=== PATIENT | male | born 1955 | race Caucasian/White ===

== ENCOUNTER → 2017-08-30 09:51 | Outpatient (CLI) | payer BC, SELFPAY ==
[2017-08-30 12:37] LABS: PSA,Total- Diagnostic 0.64 ng/mL (0.0-4.0)
== END ==
PROVIDERS: Family Provider Family Medicine; PCP Family Medicine; Visit Provider Family Medicine
DX: R19.7 Diarrhea, unspecified (principal); Z12.5 Encounter for screening for malignant neoplasm of prostate
CPT/HCPCS: 36415; 82274; 83630; 84153; 87177; 87209; 87493; 87506

== ENCOUNTER → 2018-09-01 14:52 | Outpatient (CLI) | payer BC, SELFPAY ==
[2018-09-01 17:50] LABS: ALB/GLOB Ratio 1.1 RATIO (0.9-2.4); AST(SGOT) 18 U/L (15-37); Alanine Aminotransfer ALT/SGPT 25 U/L (16-61); Albumin, Serum 3.8 g/dL (3.2-5.0); Alkaline Phosphatase 84 U/L (45-117); Anion Gap 11 (5-15); BUN 17 mg/dL (7-18); BUN/Creat Ratio 13.8 RATIO (10-20); Calcium,Total 8.7 mg/dL (8.5-10.1); Chloride 107 mmol/L (98-107); Cholesterol 169 mg/dL (200); Creatinine, Serum 1.23 mg/dL (0.70-1.30); EST Glomerular Filtration Rate 63 mL/min (>60); Est Glom Filt Rate - Afr Amer 76 mL/min (>60); Globulin 3.6 g/dL (2.2-4.2); Glucose 81 mg/dL (74-106); High Density Lipoprotein 53 mg/dL; Magnesium 2.4 mg/dL (1.6-2.6); PSA,Total - Annual Screen 0.58 ng/mL (0.00-4.00); Potassium 3.6 mmol/L (3.5-5.1); Protein, Total 7.4 g/dL (6.4-8.2); Sodium Level 142 mmol/L (136-145); T4 Free Direct 0.93 ng/dL (0.76-1.46); Thyroid Stim Hormone (TSH) 1.71 uIU/mL (0.358-3.74); Triglycerides 155 mg/dL; Very Low Density Lipoprotein 31 mg/dL (5-40)
[2018-09-01 18:02] LABS: Absolute Lymphocyte Count 2.61 X10^3/ul (0.83-4.51); Absolute Neutrophil Count 2.9 X10^3/uL (2.0-7.7); Basophil# 0.07 X10^3/uL; Eosinophil# 0.54 X10^3/uL; Eosinophils% 7.9 % (0-5); Hematocrit 46.4 % (40-54); Hemoglobin 15.8 g/dl (13.0-16.5); Lymphocyte # 2.61 X10^3/ul (4.0); Lymphocyte % 38.2 % (19-41); Mean Corp Hgb Conc 34.1 g/gl (32-36); Mean Corpuscular Hgb 30.2 pg (27.0-32.0); Mean Corpuscular Volume 88.7 fL (80-94); Mean Platelet Vol. 9.6 fl (6.2-12.0); Monocyte# 0.69 X10^3/uL; Monocyte% 10.1 % (0-10); Neutrophil % 42.5 % (47-70); Platelet Count 202 K/mm3 (150-450); RBC Distribution Width CV 12.9 % (11.6-14.6); RBC Distribution Width SD 42.1 fl (35.1-43.9); Red Blood Count 5.23 M/mm3 (4.6-6.2); White Blood Count 6.8 K/mm3 (4.4-11.0)
[2018-09-01 18:05] LABS: POSITIVE COUNT NO; POSITIVE DIFFERENTIAL NO; POSITIVE MORPHOLOGY NO
== END ==
PROVIDERS: Family Provider Family Medicine; PCP Family Medicine; Visit Provider Family Medicine
DX: Z00.00 Encounter for general adult medical examination without abnormal findings (principal); R00.2 Palpitations; Z12.5 Encounter for screening for malignant neoplasm of prostate
CPT/HCPCS: 36415; 80053; 80061; 83735; 84153; 84439; 84443; 85025; G0103

== ENCOUNTER 2020-03-14 07:59 | Emergency (ER) | payer MEDICARE, OTHER, SELFPAY ==
[2020-03-14 08:00] VITALS: BP 149/85; PULSE 71; RESP 18; TEMP 36.4; O2SAT 97; BMI 27.8
--- NOTE | 2020-03-14 09:17 | RAD_ITS ---
STUDY: X-RAY CHEST REASON FOR EXAM: Male, 65 years old. COUGH, LOSS OF TASTE TECHNIQUE: Single AP portable view of the chest. COMPARISON: None. FINDINGS: The lungs are clear and expanded. There is no demonstrated pleural abnormality. Normal size heart. Normal mediastinum and karlo. Normal visualized pulmonary arteries. There is atherosclerotic tortuosity of the aortic arch and descending thoracic aorta. There are degenerative changes of the visualized thoracic spine. Minimal dextroscoliosis. Normal visualized ribs, clavicles, and shoulders. There is no demonstrated abnormality of the visualized soft tissue structures of the upper abdomen. RAD/Chest 1 View (Portable) IMPRESSION: No acute abnormality is seen. Electronically Signed: Virgilio Ortiz, at 9:36 EDT , Service support ,
--- NOTE | 2020-03-14 09:20 | ED.DCSUM_ITS ---
History of Present Illness Chief Complaint: Other, Pain/Inj Informant: Patient Onset: Today - Loss of smell and for the past 6 days no rhinorrhea which is abnormal Context: Sudden Onset Timing: Continuous Quality: Loss of smell and loss of hayfever symptoms Location: Upper respiratory Current Severity: Mild Maximum Severity: Mild Worsened by: Nothing Relieved by: Nothing Associated Symptoms: No associated symptoms Narrative: Patient is a 65-year-old male who presents because of loss of smell that started this morning and loss of hayfever symptoms that started 6 days ago. He denies fever, chills or night sweats. He denies ocular, visual auditory symptoms. He denies change in voice, sore throat or difficulty swallowing. He denies cough, dyspnea or dyspnea on exertion. He denies chest discomfort. He denies any symptoms involving his extremities. He denies GI symptoms. He is unaware of any ill contacts. Prior similar symptoms: No Recent Illness/Hospitalization: No Past Medical History - Allergies and Home Meds Allergies/Adverse Reactions: Allergies SEASONAL Allergy (Uncoded 03/14/20 08:03) NEEDS FOLLOW-UP SNEEZING, WATERY EYES, ETC. Primary Care Physician: Sorin Anderson DO [Primary Care Provider] - Prior records reviewed: No - There are none Surgical History: noncontributory Lives: Alone Smoking Status: Never smoker Alcohol: None Drugs: None Review of Systems General: Denies: Chills, Fever, Malaise, Subjective Eyes: Denies: Visual changes - bilaterally, Blurred Vision - bilaterally ENT: Denies: Bilateral ear pain, Rhinorrhea, Sore throat Cardiovascular: Denies: Chest pain, Palpitations Respiratory: Denies: Dyspnea, Cough, Dyspnea on exertion Gastrointestinal: Denies: Nausea, Vomiting, Diarrhea Musculoskeletal: Denies: Myalgias, Arthralgias, Neck pain, Back pain, Swelling, Extremity Pain, -, - Neurological: Denies: Headache, Weakness Allergy: Denies: Uticaria, Swelling of the mouth, Swelling of the tongue Physical Exam Vital Signs/Narrative: Vital Signs Temp Pulse Resp BP Pulse Ox 03/14/20 08:00 97.6 F L 71 18 149/85 H 97 Inital Vital Signs reviewed: Yes General: No Acute Distress. Negative for: Well nourished, Well developed Head: Normocephalic, Atraumatic Eyes: Perrl, EOMI. Negative for: Pale conjunctiva, Scleral icterus ENT: Moist mucous membranes, No rhinorrhea Neck: Supple, Nontender, No lymphadenopathy, No JVD Cardiovascular: Regular rate, Regular rhythm, No murmurs Respiratory: No distress, Chest nontender, Rales - Rales right lower lobe posteriorly. Negative for: CTA bilaterally Abdomen: Soft, Nontender, Nondistended, Normal bowel sounds Rectal: Deferred Extremities: Nontender, No edema Skin: Normal color, No rash, No Trauma. Negative for: Cyanosis, Diaphoresis, Jaundice Neurological: Alert, Oriented x3, Cranial nerves II-XII grossly intact, Normal Strength, Normal Sensation Psychological: Normal affect, Normal Mood Diagnostic/Tx/Re-eval Chest X-Ray - ED: 1 View, Read by ED Physician Single view chest x-ray was interpreted by me as negative for any acute pathology. Cardiac size and silhouette normal. Mediastinum/karlo normal. Osseous structures are normal. Lung parenchyma without evidence of infiltrate, congestive heart failure and there is no pleural effusion. - Medical Decision Making With respiratory symptoms and loss of smell COVID test was obtained and chest x- ray because of abnormal auscultatory findings right lower lobe posteriorly to evaluate for pneumonia versus atelectasis. Patient's chest x-ray is normal. Since his vitals are normal he will be discharged home with appropriate home-going instructions. He was informed it may take several days to potentially a week to obtain COVID test results. He was instructed to self quarantine. He was instructed that he should call his friends he was scheduled to play golf with the head states he should not. ED Disposition - Plan for ED Patient: Disposition: Home or Assisted Living Diagnosis: Suspected 2019 novel coronavirus infection Instructions: ED URI Viral Referrals: Sorin Anderson DO [Primary Care Provider] - As Needed Additional Instructions: You should self quarantine until you get your COVID 19 viral test results.
[2020-03-14 10:00] VITALS: BP 137/88; PULSE 57; RESP 16; O2SAT 99
== END 2020-03-14 10:39 | disposition home or self-care (01) ==
LOC: ED 10:34
PROVIDERS: Emergency Provider Emergency Medicine; PCP Family Medicine
DX: U07.1 COVID-19 (principal)
CPT/HCPCS: 71045; 87040; 87635; 94799; 99284; U0003

== ENCOUNTER → 2020-09-21 10:30 | Outpatient (CLI) | payer MEDICARE, OTHER, SELFPAY ==
[2020-09-21 12:56] LABS: Absolute Lymphocyte Count 1.65 X10^3/uL (0.83-4.51); Absolute Neutrophil Count 3.1 X10^3/uL (2.0-7.7); Basophil# 0.08 X10^3/uL; Basophil% 1.3 % (0-1); Eosinophil# 0.63 X10^3/uL; Eosinophils% 10.6 % (0-5); Hematocrit 44.4 % (40-54); Hemoglobin 14.7 g/dL (13.0-16.5); Lymphocyte # 1.65 X10^3/ul (4.0); Lymphocyte % 27.7 % (19-41); Mean Corp Hgb Conc 33.1 g/dL (32-36); Mean Corpuscular Hgb 30.2 pg (27.0-32.0); Mean Corpuscular Volume 91.2 fL (80-94); Mean Platelet Vol. 9.6 fl (6.2-12.0); Monocyte# 0.52 X10^3/uL; Monocyte% 8.7 % (0-10); NRBC Flagged by Analyzer 0 % (0-5); Neutrophil # 3.06 X10^3/uL (2.7-7.7); Neutrophil % 51.5 % (47-70); Platelet Count 194 K/mm3 (150-450); RBC Distribution Width CV 12.2 % (11.6-14.6); RBC Distribution Width SD 40.9 fl (35.1-43.9); Red Blood Count 4.87 M/mm3 (4.6-6.2)
[2020-09-21 13:18] LABS: ALB/GLOB Ratio 1.2 RATIO (0.9-2.4); AST(SGOT) 20 U/L (15-37); Alanine Aminotransfer ALT/SGPT 28 U/L (16-61); Albumin, Serum 3.9 g/dL (3.2-5.0); Alkaline Phosphatase 80 U/L (45-117); Anion Gap 5 (5-15); BUN 19 mg/dL (7-18); BUN/Creat Ratio 15.8 RATIO (10-20); Chloride 109 mmol/L (98-107); EST Glomerular Filtration Rate 64 mL/min (>60); Est Glom Filt Rate - Afr Amer 78 mL/min (>60); Globulin 3.2 g/dL (2.2-4.2); Glucose 80 mg/dL (74-106); PSA,Total - Annual Screen 0.47 ng/mL (0.00-4.00); Potassium 4.1 mmol/L (3.5-5.1); Protein, Total 7.1 g/dL (6.4-8.2); Sodium Level 140 mmol/L (136-145)
== END ==
PROVIDERS: PCP Family Medicine; Visit Provider Family Medicine
DX: R10.9 Unspecified abdominal pain (principal); Z12.5 Encounter for screening for malignant neoplasm of prostate
CPT/HCPCS: 36415; 80053; 84153; 85025; G0103

== ENCOUNTER → 2020-09-26 06:55 | Outpatient (CLI) | payer MEDICARE, OTHER, SELFPAY ==
--- NOTE | 2020-09-26 06:58 | CT_ITS ---
STUDY: CT ABDOMEN AND PELVIS WITH CONTRAST REASON FOR EXAM: Male, 65 years old. RLQ PAIN SINCE 01/2020, NOT CURRENTLY HAVING PAIN, BILATERAL HERNIA REPAIR RADIATION DOSAGE (If Supplied By Facility): CTDIvol = ( 11.48 ) mGy, DLP = ( 1058.91 ) mGycm TECHNIQUE: Transaxial images were obtained from the dome of the diaphragm to the symphysis pubis without oral contrast. was administered. Sagittal and coronal images were reconstructed. Individualized dose optimization techniques were used for this CT. COMPARISON: None. FINDINGS: The visualized lung bases are unremarkable. The visualized portions of the heart are within normal limits. Normal liver. Normal gallbladder and extrahepatic biliary system. There is mild splenomegaly. Normal pancreas. Normal bilateral adrenal glands. Normal right kidney. Normal left kidney. There is a small hiatal hernia. Normal small intestine. There are multiple colonic diverticula consistent with diverticulosis. The appendix is visualized and appears normal. There is diffuse atherosclerotic calcification of the abdominal aorta and its major visceral branches, without a demonstrated aneurysm. Normal inferior vena cava. Normal retroperitoneum. Normal urinary bladder. There is enlargement of the prostate gland. It measures 5.5 cm x 3.6 cm. There is a right-sided inguinal hernia containing adipose tissue. There are diffuse degenerative changes of the visualized lumbar spine. Minimal anterior listhesis of L5 on S1 with spondylolysis of the pars interarticularis of the L5 vertebrae. CT/Abdomen/Pelvis WITH Contrast IMPRESSION: Sigmoid diverticulosis. Borderline splenomegaly. Small hiatal hernia. Electronically Signed: Virgilio Ortiz MD at 8:41 EST , Service support ,
== END ==
PROVIDERS: PCP Family Medicine; Referring Provider Family Medicine; Visit Provider Family Medicine
DX: R10.31 Right lower quadrant pain (principal)
CPT/HCPCS: 74177; Q9967

== ENCOUNTER 2020-10-11 08:55 | Outpatient (RCR) | payer MEDICARE, OTHER, SELFPAY ==
[2020-10-11] MEDS: COVID-19 VACC, MRNA(PFIZER)/PF 30 MCG/0.3 ML SYRINGE IM (10:41)
[2020-11-01] MEDS: COVID-19 VACC, MRNA(PFIZER)/PF 30 MCG/0.3 ML SYRINGE IM (10:29)
== END 2021-01-10 23:59 ==
LOC: IMMUN 08:55
PROVIDERS: PCP Family Medicine; Visit Provider Family Medicine
DX: Z23 Encounter for immunization (principal)
CPT/HCPCS: 0001A; 0002A; 91300

== ENCOUNTER → 2020-11-25 15:18 | Outpatient (CLI) | payer MEDICARE, OTHER, SELFPAY ==
[2020-11-25 18:13] LABS: CRP < 2.90 mg/L (0.0-3.0)
[2020-11-28 16:08] LABS: Endomysial Antibody IgA Negative (Negative)
[2020-11-28 18:44] LABS: Immunoglobulin A 209 mg/dL (61-437); t-Transglutaminase IgA <2 U/mL (0-3)
== END ==
PROVIDERS: PCP Family Medicine; Referring Provider Internal Medicine Gastroenterology; Visit Provider Internal Medicine Gastroenterology
DX: R10.9 Unspecified abdominal pain (principal)
CPT/HCPCS: 36415; 82784; 83516; 86140; 86255

== ENCOUNTER → 2021-04-12 14:35 | Outpatient (CLI) | payer MEDICARE, OTHER, SELFPAY ==
--- NOTE | 2021-04-12 14:38 | CT_ITS ---
STUDY: CT ABDOMEN AND PELVIS WITH CONTRAST REASON FOR EXAM: Male, 66 years old. POSS RECURRENT INGUINAL HERNIA RADIATION DOSAGE (If Supplied By Facility): CTDIvol = ( 15.71 ) mGy, DLP = ( 816.75 ) mGycm TECHNIQUE: Transaxial images were obtained from the dome of the diaphragm to the symphysis pubis without oral contrast. IV 100mL Isovue-370 was administered. Sagittal and coronal images were reconstructed. Individualized dose optimization techniques were used for this CT. COMPARISON: 09/26/2020 FINDINGS: The visualized lung bases are unremarkable. The visualized portions of the heart are within normal limits. Normal liver. Normal gallbladder and extrahepatic biliary system. Normal spleen. Normal pancreas. Normal bilateral adrenal glands. Normal right kidney. Normal left kidney. Normal visualized stomach. Normal small intestine. Normal colon. The appendix is visualized and appears normal. There is diffuse atherosclerotic calcification of the abdominal aorta, without a demonstrated aneurysm. Normal inferior vena cava. Normal retroperitoneum. Normal urinary bladder. There are prostatic calcifications. No inguinal hernia. There are diffuse degenerative changes of the visualized lumbar spine. Left L5 pars defect redemonstrated. CT/Abdomen/Pelvis WITH Contrast IMPRESSION: No recurrence of inguinal hernia. No acute abnormal finding in the abdomen or pelvis. Electronically Signed: Alexandre Mayer MD at 23:19 EDT Tel , Service support ,
[2021-04-12 15:06] LABS: CREATININE FINGERSTICK 1.3 mg/dL (0.70-1.30)
== END ==
PROVIDERS: PCP Family Medicine; Referring Provider Family Medicine; Visit Provider Family Medicine
DX: K40.90 Unilateral inguinal hernia, without obstruction or gangrene, not specified as recurrent (principal)
CPT/HCPCS: 74177; Q9967

== ENCOUNTER 2021-08-07 10:20 | Outpatient (CLI) | payer MEDICARE, OTHER, SELFPAY | END 2021-08-07 23:59 | disposition short-term general hospital (02) | LOC: LABSPEC 10:22 | PROVIDERS: PCP Family Medicine; Referring Provider Physician Assistant; Visit Provider Physician Assistant | DX: U07.1 COVID-19 (principal) | CPT/HCPCS: 87635; U0003; U0005 ==

== ENCOUNTER → 2022-05-10 | Outpatient (CLI) | payer MEDICARE, OTHER, SELFPAY ==
--- NOTE | 2022-05-10 07:55 | RAD_ITS ---
STUDY: X-RAY - ESOPHAGUS (BARIUM SWALLOW) WITH FLUOROSCOPY REASON FOR EXAM: Male, 67 years old. DYSPHAGIA TECHNIQUE: 16 view(s) of the esophagus were obtained following swallowing of barium. FLUOROSCOPY TIME (if supplied): (30 seconds) minutes/seconds COMPARISON: None. FINDINGS: There is no demonstrated esophageal foreign body. There is no demonstrated stricture or mucosal abnormality. Normal gastroesophageal junction, without a demonstrated hiatal hernia. The patient ingested a 12 mm tablet of barium without any difficulty. There is atherosclerotic tortuosity of the aortic arch and descending thoracic aorta. Normal visualized pulmonary parenchyma. There are diffuse degenerative changes of the visualized thoracic spine. RAD/Esophagus Dual Contrast IMPRESSION: Normal plain film x-ray examination (barium swallow) of the esophagus. Electronically Signed: Virgilio Ortiz MD at 13:55 EDT ,
== END | disposition home or self-care (01) ==
LOC: RAD 07:47
PROVIDERS: PCP Family Medicine; Visit Provider Otolaryngology Otolaryngology/Facial Plastic Surgery
DX: R13.10 Dysphagia, unspecified (principal)
CPT/HCPCS: 74221

== ENCOUNTER 2023-06-21 03:50 | Emergency (ER) | payer MEDICARE, OTHER, SELFPAY ==
[2023-06-21 03:51] VITALS: BP 151/85; PULSE 77; RESP 17; TEMP 36.6; O2SAT 97; BMI 28.2
[2023-06-21 04:27] VITALS: O2SAT 98
[2023-06-21 04:50] VITALS: BP 148/79; PULSE 79; RESP 16; O2SAT 97
[2023-06-21 05:00] VITALS: RESP 14
--- NOTE | 2023-06-21 05:21 | EKG12_ITS ---
Test Reason : CP Blood Pressure : / mmHG Vent. Rate : 069 BPM Atrial Rate : 069 BPM P-R Int : 188 ms QRS Dur : 084 ms QT Int : 424 ms P-R-T Axes : 067 -06 044 degrees QTc Int : 454 ms Sinus rhythm with Blocked Premature atrial complexes Nonspecific ST abnormality Abnormal ECG Confirmed by YANIV MARTINEZ, ABEL ([id number]), editor greeting card ARASELI REYES ([id number]) on 06/26/2023 12:07:45 PM Referred By: HALEY Confirmed By:ABEL PURVIS MD
--- NOTE | 2023-06-21 05:25 | RAD_ITS ---
STUDY: X-RAY CHEST REASON FOR EXAM: Male, 68 years old patient with chest pain. TECHNIQUE: Single AP portable view of the chest. COMPARISON: March 14, 2020. FINDINGS: Cardiac monitoring leads are present. The lungs are clear and hyperexpanded. There is no demonstrated pleural abnormality. Normal size heart. Normal mediastinum and karlo. Normal visualized pulmonary arteries. There is atherosclerotic calcification of the aortic arch with tortuosity. There are diffuse degenerative changes of the visualized thoracic spine. Normal visualized ribs, clavicles, and shoulders. There is no demonstrated abnormality of the visualized soft tissue structures of the upper abdomen. RAD/Chest 1 View (Portable) IMPRESSION: No radiographic evidence of acute cardiopulmonary disease. Electronically Signed: Maryjane Brito MD at 6:37 EST ,
[2023-06-21 05:30] LABS: Absolute Lymphocyte Count 1.42 X10^3/uL (0.83-4.51); Basophil# 0.09 X10^3/uL; Basophil% 1.4 % (0-1); Eosinophil# 0.43 X10^3/uL; Eosinophils% 6.5 % (0-5); Hematocrit 45.4 % (40-54); Hemoglobin 14.9 g/dL (13.0-16.5); Lymphocyte # 1.42 X10^3/ul (0.83-4.51); Lymphocyte % 21.4 % (19-41); Mean Corp Hgb Conc 32.8 g/dL (32-36); Mean Corpuscular Hgb 30.5 pg (27.0-32.0); Mean Corpuscular Volume 92.8 fL (80-94); Mean Platelet Vol. 9.3 fl (6.2-12.0); Monocyte# 0.68 X10^3/uL; Monocyte% 10.2 % (0-10); NRBC Flagged by Analyzer 0 % (0-5); Platelet Count 180 K/mm3 (150-450); RBC Distribution Width CV 12.4 % (11.6-14.6); RBC Distribution Width SD 42.2 fl (35.1-43.9); Red Blood Count 4.89 M/mm3 (4.6-6.2); White Blood Count 6.7 K/mm3 (4.4-11.0)
[2023-06-21 05:53] LABS: Anion Gap 5 (5-15); BUN 23 mg/dL (7-18); BUN/Creat Ratio 18.5 RATIO (10-20); Calcium,Total 8.4 mg/dL (8.5-10.1); Chloride 110 mmol/L (98-107); Creatinine, Serum 1.24 mg/dL (0.70-1.30); EST Glomerular Filtration Rate 61 mL/min (>60); Est Glom Filt Rate - Afr Amer 74 mL/min (>60); Estimated Creatinine Clearance 61.71 ml/min; Glucose 104 mg/dL (74-106); Potassium 4.2 mmol/L (3.5-5.1); Sodium Level 142 mmol/L (136-145); Troponin-I HS (w/2H Reflex) 6 pg/mL (3.0-78.0)
[2023-06-21 06:11] VITALS: BP 139/63; BP 146/89; BP 152/80; BP 156/82; PULSE 41; PULSE 71; PULSE 72
[2023-06-21 06:22] LABS: Magnesium 2.4 mg/dL (1.6-2.6)
[2023-06-21] MEDS: 0.9% Normal Saline (1000mL) 1,000 ML 999 ML IV ×2 (06:53→06:59)
--- NOTE | 2023-06-21 07:05 | EDS_ITS ---
HPI History of Present Illness Chief Complaint: Syncope Informant: patient Narrative Narrative: Patient is a 68-year-old male with no reported significant past medical history. He does state that he drinks 4-6 beers daily. He states that today he went golfing for 18 holes and then played pickle ball. He states that he does this fairly often and did not think he overexerted himself. He states he went to bed normally then awoke to use the bathroom. He states as he was walking to the bathroom he felt lightheaded and dizzy and then had a brief episode of loss of consciousness where he reports he fell and struck his head. He states he awoke shortly after the fall and was able to stand and ambulate to the bathroom but still felt slightly nauseous and realize he had a laceration to his forehead and secondary to this comes in for evaluation [facility] Medical History no medical history no medical history Home Medications NK 06/21/23 [History Last Taken Unknown] Allergy/AdvReac Type Severity Reaction Status Date / Time Seasonal Allergies: Uncoded Allergy SNEEZING, Verified 06/21/23 03:57 WATERY EYES Surgical History no surgical history Social History Smoking Status: Never smoker [facility] ED Constitutional Constitutional ED: Denies chills or fever(s) Eyes Eyes: Denies change in vision ENT ENT ED: Denies sore throat Cardiovascular Cardiovascular: Denies chest pain, palpitations or racing heartbeat Respiratory/Chest Respiratory/Chest: Denies cough or dyspnea Gastrointestinal Gastrointestinal: Reports nausea; Denies abdominal pain, diarrhea or vomiting Genitourinary Genitourinary ED: Denies dysuria Musculoskeletal Musculoskeletal: Denies myalgias or neck pain Integumentary Reports other Details: Positive forehead laceration ; Denies rash Neurologic Neurologic: Denies headache(s) or paresthesias Hematologic/Lymphatic Hematologic/Lymphatic: Denies easy bleeding or easy bruising EXAM Physical Exam Const Vital Signs: 06/21/23 03:51 06/21/23 03:54 06/21/23 04:27 Temperature 97.8 F Temperature Source Temporal Pulse Rate 77 Pulse Rate [Lying] Pulse Rate [Sitting (for 1 minute prior to obtaining)] Pulse Rate [Standing (for 1 minute prior to obtaining)] Respiratory Rate 17 Respiratory Pattern Normal Blood Pressure 151/85 H Blood Pressure [Lying] Blood Pressure [Sitting (for 1 minute prior to obtaining)] Blood Pressure [Standing (for 1 minute prior to obtaining)] Blood Pressure Mean 107 Blood Pressure Mean [Lying] Blood Pressure Mean [Sitting (for 1 minute prior to obtaining)] Blood Pressure Mean [Standing (for 1 minute prior to obtaining)] Pulse Ox 97 98 Oxygen Delivery Method Room Air Room Air 06/21/23 04:50 06/21/23 05:00 06/21/23 05:23 Temperature Temperature Source Pulse Rate 79 Pulse Rate [Lying] Pulse Rate [Sitting (for 1 minute prior to obtaining)] Pulse Rate [Standing (for 1 minute prior to obtaining)] Respiratory Rate 16 14 Respiratory Pattern Blood Pressure 148/79 H Blood Pressure [Lying] Blood Pressure [Sitting (for 1 minute prior to obtaining)] Blood Pressure [Standing (for 1 minute prior to obtaining)] Blood Pressure Mean 102 Blood Pressure Mean [Lying] Blood Pressure Mean [Sitting (for 1 minute prior to obtaining)] Blood Pressure Mean [Standing (for 1 minute prior to obtaining)] Pulse Ox 97 Oxygen Delivery Method Room Air Room Air 06/21/23 06:11 06/21/23 06:11 06/21/23 07:36 Temperature Temperature Source Pulse Rate 72 Pulse Rate [Lying] 71 Pulse Rate [Sitting (for 1 minute prior to obtaining)] 72 Pulse Rate [Standing (for 1 minute prior to obtaining)] 41 L Respiratory Rate Respiratory Pattern Blood Pressure 156/82 H 126/73 H Blood Pressure [Lying] 139/63 H Blood Pressure [Sitting (for 1 minute prior to obtaining)] 146/89 H Blood Pressure [Standing (for 1 minute prior to obtaining)] 152/80 H Blood Pressure Mean 106 90 Blood Pressure Mean [Lying] 88 Blood Pressure Mean [Sitting (for 1 minute prior to obtaining)] 108 Blood Pressure Mean [Standing (for 1 minute prior to obtaining)] 104 Pulse Ox Oxygen Delivery Method Positive well nourished and well developed General Appearance ED: well developed HEENT HEENT Narrative: Patient has a linear subcutaneous layer deep 2 cm laceration just above the left eyebrow with minimal ooze of blood and no foreign body Otherwise no signs of depressed or basilar skull fracture No septal hematoma noted Eyes PERRL and EOMs intact bilaterally Eyes Narrative: No hyphema present Neck supple Neck Narrative: No bony deformity or step-off of the cervical spine no midline pain on palpation Patient is able to move his neck in all directions without pain Resp normal respiratory effort and clear to auscultation bilaterally Cardio regular rate and regular rhythm Rate: other Other Details: Heart is regular rate and rhythm with frequent ectopic beat noted No murmurs rubs or gallops noted Radial and carotid pulses are equal and symmetric GI normal to inspection, nondistended, normoactive bowel sounds, non-tender, non- distended and no masses GI Narrative: No voluntary guarding or rigidity No pulsatile mass or fluid wave Auscultation: normoactive bowel sounds Palpation: soft Back/Spine Back/Spine Narrative: No bony deformity or step-off of the thoracic or lumbar spine no midline pain on palpation Extremity normal to inspection Extremity Narrative: Pelvis is stable there is no shortening external rotation of either lower extremity Patient is able to move all extremities without difficulty Neuro oriented x3 and CN's II-XII intact bilaterally Neuro Narrative: Cranial nerves II through XII are grossly intact there are no focal neurologic deficits No pronator drift no dysmetria no truncal ataxia NIH stroke scale score of 0 Sensorium / Orientation: alert Motor Exam: strength 5/5 throughout Psych Psych Narrative: Patient has a flat affect Skin Skin Narrative: Laceration to the left sided forehead as documented above MDM MDM MDM Narrative Medical decision making narrative: Patient presented to the ER awake and alert with normal neurologic exam. He reported a single episode of syncope after standing up to walk to the bathroom. He denied any palpitations or chest pain prior to the event and he also denied any history of bleeding disorder or blood thinner use. Still based on his syncopal event there is concern for cardiac dysrhythmia acute blood loss anemia acute kidney injury underlying traumatic brain injury such as skull fracture epidural or subdural hematoma and secondary to this a basic work-up was obtained. Patient's troponin was normal at 6 his H&H is stable and he has no signs of electrolyte abnormality or acute kidney injury. We discussed a head CT based on his syncope and head trauma but he does not want obtained at this time as his physical exam does not suggest underlying skull fracture or brain bleed as he had low mechanism of injury and struck the frontal portion of his skull. Patient was noted to have frequent PACs and heart rate did drop with standing from a normal value of 70-80 down to 40. Patient was given 2 L of fluid and after this he was able to stand and ambulate without any difficulty. Therefore as his laboratory studies show no clinically significant findings and concern for Head injury is low and he has had improvement of symptoms with hydration he is otherwise safe for discharge Patient had his forehead laceration cleaned with chlorhexidine. The area was anesthetized using 6 mL of 2% lidocaine without epinephrine in local fashion. The wound was copiously irrigated with normal saline. Then six 5-0 Ethilon sutures were placed in simple interrupted fashion bring the wound together good approximation. Patient tolerated the procedure without any complication History & Record Review Discussion w/independent historian: Patient Lab Data Attestation: I reviewed the patient's lab results. Labs: Laboratory Results - last 24 hr 06/21/23 05:11 WBC 6.7 RBC 4.89 Hgb 14.9 Hct 45.4 MCV 92.8 MCH 30.5 MCHC 32.8 RDW Std Deviation 42.2 RDW Coeff of Aida 12.4 Plt Count 180 MPV 9.3 Immature Gran % (Auto) 0.500 Neut % (Auto) 60.0 Lymph % (Auto) 21.4 [place] % (Auto) 10.2 H Eos % (Auto) 6.5 H Baso % (Auto) 1.4 H Absolute Neuts (auto) 4.0 Absolute Lymphs (auto) 1.42 Nucleated RBC % 0 Sodium 142 Potassium 4.2 Chloride 110 H Carbon Dioxide 27.0 Anion Gap 5 BUN 23 H Creatinine 1.24 Estim Creat Clear Calc 61.71 Est GFR (MDRD) Af Amer 74 Est GFR (MDRD) Non-Af 61 BUN/Creatinine Ratio 18.5 Glucose 104 Calcium 8.4 L Magnesium 2.4 Troponin I High Sens 6 Radiography Diagnostic Testing: Clinical Impression(s) from Imaging Studies Chest X-Ray 06/21/23 05:25 IMPRESSION: No radiographic evidence of acute cardiopulmonary disease. Electronically Signed: Maryjane Brito MD at 6:37 EST Reading Location ID and State: [facility] / [place] , Service support , Chest x-ray as interpreted by the emergency medicine physician reveals no acute infiltrate pneumothorax pleural effusion or widening of the mediastinum Discharge Plan Triage Chief Complaint: Syncope ED Provider: Bhavik Maradiaga Dx/Rx/DC Orders Clinical Impression: Blocked premature atrial contraction, Syncope, Atrial bigeminy, Forehead laceration Instructions: Dizziness Fainting Causes, ED About Arrhythmias Prescriptions: No Action NK Primary Care Provider: Care Physician,No Primary Referrals: Deysi Ndiaye MD [Med Staff - Active Staff] - Alexandre Reyna MD [Med Staff - Active Staff] - Care Physician,No Primary [Primary Care Provider] - Activity Restrictions/Additional Instructions: Please see your family doctor or return to the ER in 7 days for suture removal. Follow-up with cardiology based on your syncope and premature atrial contractions with bigeminy in order to discuss further studies such as Holter monitor. If you have any further concerns or worsening of symptoms please return for repeat evaluation Disposition Disposition: Home, Self Care Discharge Date/Time: 06/21/23 08:00
[2023-06-21 07:27] LABS: Reflex Troponin-HS? (from REC) Y
[2023-06-21 07:36] VITALS: BP 126/73
== END 2023-06-21 08:00 | disposition home or self-care (01) ==
PROVIDERS: Emergency Provider Emergency Medicine; Visit Provider Emergency Medicine
DX: S01.81XA Laceration without foreign body of other part of head, initial encounter (principal); I49.1 Atrial premature depolarization; R55 Syncope and collapse; W01.10XA Fall on same level from slipping, tripping and stumbling with subsequent striking against unspecified object, initial encounter; Y93.01 Activity, walking, marching and hiking
CPT/HCPCS: 12011; 71045; 80048; 83735; 84484; 85025; 93005; 96360; 99285; J7030; A4216

== ENCOUNTER → 2023-09-03 | Outpatient (CLI) | payer MEDICARE, OTHER, SELFPAY ==
--- NOTE | 2023-09-03 07:48 | CDU_ITS ---
Reason For Study: Syncope Rt. Velocities/BP Lt. Velocities/BP Prox CCA 99.2/22.3 cm/sec. Prox CCA 102.3/23.7 cm/sec. Mid CCA 110.2/25.6 cm/sec. Mid CCA 117/26.2 cm/sec. Dist CCA 126.6/35.3 cm/sec. Dist CCA 158.7/42.4 cm/sec. Prox ICA 117.4/22.5 cm/sec. Prox ICA 119.3/27.9 cm/sec. Mid ICA 115.6/26.1 cm/sec. Mid ICA 77.3/24.3 cm/sec. Dist ICA 102.8/33.4 cm/sec. Dist ICA 80.9/24.3 cm/sec. Rt. ICA/CCA = 1.07. Lt. ICA/CCA = 1.02. Prox ECA 144.8/11.5 cm/sec. Prox ECA 139/13.8 cm/sec. Rt. Vert. 48.5/14.5 cm/sec. Lt. Vert. 59.3/17.6 cm/sec. Right Extracranial There is heterogeneous, irregular atherosclerotic plaque noted in the right common carotid artery. There is heterogeneous, irregular atherosclerotic plaque noted in the right internal carotid artery. There is intimal thickening but no significant atherosclerotic plaque noted in the right external carotid artery. Antegrade flow is noted in the right vertebral artery. Left Extracranial There is heterogeneous, irregular atherosclerotic plaque noted in the left common carotid artery. There is heterogeneous, irregular atherosclerotic plaque noted in the left internal carotid artery. There is intimal thickening but no significant atherosclerotic plaque noted in the left external carotid artery. Antegrade flow is noted in the left vertebral artery. Procedure Carotid Duplex [id number]. This is a Carotid Duplex examination using B-mode, color flow and specral Doppler. Exam performed in department. VL/Carotid Duplex Ultrasound Interpretation Summary Mild (<50%) stenosis right extracranial internal carotid. Mild (<50%) stenosis left extracranial internal carotid. Patent and antegrade vertebrals bilaterally. Ordering Physician: Fidel Navas Referring Physician: Sorin Anderson Performed By: Gerda Manzanares RVT
--- NOTE | 2023-09-03 07:48 | ECHOD_ITS ---
Reason For Study: Syncope Procedure This was a 2D Doppler, Color Flow transthoracic echocardiogram. Exam performed in department. Left Ventricle Normal LV size. Left ventricular systolic function is normal. The estimated ejection fraction is 60 %. Normal diastology for age. No regional wall motion abnormalities noted. Right Ventricle Normal RV size. Normal systolic function. Atria The left and right atria are normal. Mitral Valve The mitral valve is structurally normal. No prolapse or stenosis seen. Trivial mitral valve insufficiency. Tricuspid Valve Normal tricuspid valve. Mild (1+) tricuspid valve insufficiency. Right ventricular systolic pressure estimated to be 34 mmHg. Aortic Valve Trisinus/trileaflet aortic valve. Mild focal aortic valve thickening. Trivial aortic valve insufficiency. Pulmonic Valve The pulmonic valve is not well visualized. Mild (1+) pulmonic valve insufficiency. Great Vessels Aortic root size upper limits of normal. Pericardium/Pleural No pericardial effusion. MMode/2D Measurements & Calculations LVIDd: 5.3 cm IVSd: 1.1 cm Ao root diam: 4.0 cm LVIDs: 3.3 cm LVPWd: 0.87 cm LA dimension: 3.7 cm RVDd: 3.7 cm FS: 37.4 % LAV(MOD-bp): 39.1 ml LVAd ap4: 28.7 cm2 SV(MOD-sp4): 52.3 ml LAV(MOD-bp) Indexed: 17.8 ml/m2 LVLd ap4: 7.5 cm LAV(MOD-sp2): 46.1 ml EDV(MOD-sp4): 91.5 ml LAV(MOD-sp4): 34.0 ml EDV(sp4-el): 93.5 ml LVAs ap4: 17.3 cm2 LVLs ap4: 6.6 cm ESV(MOD-sp4): 39.2 ml ESV(sp4-el): 38.7 ml EF(MOD-sp4): 57.1 % EF(sp4-el): 58.6 % SV(sp4-el): 54.8 ml LA A4 area: 14.0 cm2 RA A4 area: 14.2 cm2 TAPSE: 2.1 cm Time Measurements MV dec time: 0.19 sec Doppler Measurements & Calculations MV E max pranay: 55.1 cm/sec Lat Peak E' Pranay: 9.5 cm/sec Med Peak E' Pranay: 7.7 cm/sec MV A max pranay: 70.7 cm/sec E/E' lat: 5.8 E/E' med: 7.2 MV E/A: 0.78 MV V2 max: 88.8 cm/sec MV P1/2t max pranay: 62.7 cm/sec Ao V2 max: 113.3 cm/sec MV max P.2 mmHg MV P1/2t: 69.0 msec Ao max P.1 mmHg MV V2 mean: 44.4 cm/sec MV dec slope: 266.5 cm/sec2 Ao V2 mean: 78.2 cm/sec MV mean P.95 mmHg Ao mean P.8 mmHg MV V2 VTI: 26.5 cm MVA(P1/2t): 3.2 cm2 Ao V2 VTI: 26.5 cm AV (velocity ratio): 0.73 LV V1 max: 85.2 cm/sec PA V2 max: 87.2 cm/sec TR max pranay: 279.4 cm/sec LV V1 max P.9 mmHg TR max P.2 mmHg LV V1 mean P.6 mmHg LV V1 mean: 60.1 cm/sec LV V1 VTI: 19.3 cm ECHO/Echo Complete Interpretation Summary The estimated ejection fraction is 60 %. Mild (1+) tricuspid valve insufficiency. Mild focal aortic valve thickening. Ordering Physician: Fidel Navas Referring Physician: Sorin Anderson Performed By: Scot Montano RCS
[2023-09-03 10:48] LABS: Thyroid Stim Hormone (TSH) 1.83 uIU/mL (0.358-3.74)
== END | disposition home or self-care (01) ==
PROVIDERS: PCP Family Medicine; Referring Provider Internal Medicine Cardiovascular Disease; Visit Provider Internal Medicine Cardiovascular Disease
DX: R94.31 Abnormal electrocardiogram [ECG] [EKG] (principal); R00.2 Palpitations; R55 Syncope and collapse; F10.10 Alcohol abuse, uncomplicated
CPT/HCPCS: 36415; 84443; 93225; 93226; 93306; 93880

== ENCOUNTER → 2024-02-19 | Outpatient (CLI) | payer MEDICARE, OTHER, SELFPAY ==
[2024-02-19 12:25] LABS: Cholesterol 166 mg/dL (200); High Density Lipoprotein 67 mg/dL; Triglycerides 73 mg/dL; Very Low Density Lipoprotein 15 mg/dL (5-40)
== END | disposition home or self-care (01) ==
LOC: LAB 10:59
PROVIDERS: Referring Provider Internal Medicine Cardiovascular Disease; Visit Provider Internal Medicine Cardiovascular Disease
DX: E78.5 Hyperlipidemia, unspecified (principal); I77.9 Disorder of arteries and arterioles, unspecified
CPT/HCPCS: 36415; 80061

== ENCOUNTER → 2025-02-16 | Outpatient (CLI) | payer MEDICARE, OTHER, SELFPAY ==
[2025-02-16 10:33] LABS: AST(SGOT) 25 U/L (<=37); Alanine Aminotransfer ALT/SGPT 18 U/L (<=46); Albumin, Serum 4.1 g/dL (3.4-4.8); Alkaline Phosphatase 82 U/L (40-129); Bilirubin, Direct 0.39 mg/dL (0.00-0.30); Cholesterol 172 mg/dL (<=200); Globulin 2.6 g/dL (2.2-4.2); Low Density Lipoprotein Calc. 87 mg/dL; Triglycerides 106 mg/dL; Very Low Density Lipoprotein 21 mg/dL (5-40); cholesterol:hdl ratio screen 2.70
== END | disposition home or self-care (01) ==
LOC: LAB 08:51
PROVIDERS: PCP Internal Medicine; Referring Provider Internal Medicine Cardiovascular Disease; Visit Provider Internal Medicine Cardiovascular Disease
DX: E78.00 Pure hypercholesterolemia, unspecified (principal); R00.2 Palpitations
CPT/HCPCS: 36415; 80061; 80076